=== PATIENT | male | born 1965 | race Caucasian/White ===

== ENCOUNTER → 2017-02-09 | Outpatient (CLI) | payer SELFPAY ==
[2017-02-09 12:50] LABS: BASOPHILS # (AUTO) 0.03 10*3/UL; BASOPHILS % (AUTO) 0.4 % (0-1); EOSINOPHILS # (AUTO) 0.05 10*3/UL; EOSINOPHILS % (AUTO) 0.7 % (0-8); HEMATOCRIT 45.9 % (42.0-52.0); HEMOGLOBIN 15.9 g/dL (14.0-18.0); LYMPHOCYTES # (AUTO) 2.06 10*3/uL; MEAN CORPUSCULAR HEMOGLOBIN 30.2 PG (27-31); MEAN CORPUSCULAR HGB CONC 34.6 g/dL (33-37); MEAN CORPUSCULAR VOLUME 87.1 FL (80-90); MEAN PLATELET VOLUME 10.6 FL (7.4-12.2); MONOCYTES % (AUTO) 5.7 % (5-15); NEUTROPHILS # (AUTO) 4.47 10*3/UL; NEUTROPHILS % (AUTO) 63.8 % (50-80); RED BLOOD COUNT 5.27 10^6/uL (4.70-6.10)
[2017-02-09 12:52] LABS: PLATELET MORPHOLOGY COMMENT NORMAL MORPHOLOGY (NORM); RBC MORPHOLOGY COMMENT NORMAL MORPHOLOGY (NORM); WBC MORPHOLOGY COMMENT NORMAL MORPHOLOGY (NORM)
--- NOTE | 2017-02-09 12:55 | DI ---
CT HEAD W/O CONTRAST,02/09/2017 12:35 PM: Clinical History: Dizziness Previous Exam: None at this facility. Findings: Multiple helically acquired CT images are obtained through the brain without contrast, and demonstrat e normal, symmetric ventricles and other CSF containing spaces. There is no mass, hemorrhage or midli ne shift. The surrounding soft tissue and osseous structures are unremarkable. Impression: Normal CT head.
[2017-02-09 13:08] LABS: BLOOD UREA NITROGEN 11 mg/dL (7-22); BUN/CREATININE RATIO 15.71 (6-20); CALCIUM 9.3 mg/dL (8.7-10.7); EST GLOMERULAR FILTRATION > 60 (>60 ml/min/1.73m(2)); LIPASE 137 IU/L (23-300); SERUM ALBUMIN 4.1 g/dL (3.5-4.8)
[2017-02-09 13:25] LABS: FREE T4 (FREE THYROXINE) 1.22 ng/dL (0.93-1.71)
--- NOTE | 2017-02-09 13:33 | EKG ---
[address] [address] Measurements Intervals [place] Rate: 70 P: 73 VA: 138 QRS: 62 QRSD: 98 T: 47 QT: 381 QTc: 402 Interpretive Statements SINUS RHYTHM WITH SINUS ARRHYTHMIA No previous ECG available for comparison Electronically Signed On 02-09-17 18:16:10 MDT by Monster Villatoro [email or web address]
== END ==
LOC: EKG 11:41 → MOB EKG 11:41
PROVIDERS: ATTEND Physician Assistant
DX: R42 Dizziness and giddiness (principal); H93.13 Tinnitus, bilateral; R51 Headache; R11.0 Nausea; I49.9 Cardiac arrhythmia, unspecified; Z72.0 Tobacco use
CPT/HCPCS: 36415; 70450; 80053; 83690; 84439; 84443; 85025; 93005; 93010